=== PATIENT | female | born 1965 | race Caucasian/White ===

== ENCOUNTER 2022-05-01 14:43 | Outpatient (CLI) | payer MEDICAID, SELFPAY ==
--- NOTE | 2022-05-01 15:20 | CRLHL7_ITS ---
For Patients: As a result of the Century Cures Act, medical imaging exams and procedure reports are released immediately into your electronic medical record. You may view this report before your referring provider. If you have questions, please contact your health care provider. BILATERAL SCREENING MAMMOGRAM WITH COMPUTER-AIDED DETECTION TECHNIQUE: CC and MLO views were obtained. These mammographic images have been obtained using full-field digital technique. These mammographic images were interpreted with the benefit of computer-aided detection. COMPARISON FILM: 10/06/18, 11/01/14 FINDINGS: The breasts are almost entirely fatty IMPRESSION: There is no radiographic evidence for malignancy. ASSESSMENT: BI-RADS Category 1: Negative RECOMMENDATION: Routine screening mammogram in 1 year. A lay language report of this examination will be provided to the patient. Alex Sellers M.D. Diagnostic Radiologist [email or web address] KAYLEE/Dictated by: Alex Sellers MD @ 05/02/2022 8:17:00 AM (Electronically Signed)
== END 2022-05-01 14:44 | disposition home or self-care (01) ==
LOC: MAMMO 14:44
PROVIDERS: PCP Physician Assistant Medical; Visit Provider Physician Assistant Medical
DX: Z12.31 Encounter for screening mammogram for malignant neoplasm of breast (principal)
CPT/HCPCS: 77063; 77067

== ENCOUNTER 2022-05-08 15:14 | Outpatient (CLI) | payer MEDICAID, SELFPAY ==
[2022-05-08 21:54] LABS: Chloride* 102 mmol/L (96-114); Potassium* 4.3 mmol/L (3.6-5.1); Sodium* 138 mmol/L (135-149)
[2022-05-08 21:57] LABS: Carbon Dioxide* 27 mmol/L (20-32); Creatinine* 0.7 mg/dL (0.5-1.5); Estimated Glomerular Filt Rate 101 ml/min
[2022-05-08 21:58] LABS: Blood Urea Nitrogen* 18 mg/dL (7-30); Calcium* 9.1 mg/dL (8.4-10.6); Glucose* 89 mg/dL (60-115)
== END 2022-05-08 15:15 | disposition home or self-care (01) ==
PROVIDERS: PCP Physician Assistant Medical; Visit Provider Physician Assistant Medical
DX: Z01.818 Encounter for other preprocedural examination (principal)
CPT/HCPCS: 80048

== ENCOUNTER 2022-05-11 08:23 | Outpatient (CLI) | payer MEDICAID, SELFPAY ==
--- NOTE | 2022-05-11 09:40 | W.ANESCHARGE ---
Anesthesia Charges Start Date/Time Anesthesia Start Date: 05/11/22 Anesthesia Start Time: 08:05 Stop Date/Time Anesthesia Stop Date: 05/11/22 Anesthesia Stop Time: 09:33 Summary Emergency: No
== END 2022-05-11 08:24 | disposition home or self-care (01) ==
LOC: OP CLINIC 08:26
PROVIDERS: PCP Physician Assistant Medical; Visit Provider Internal Medicine
DX: K21.9 Gastro-esophageal reflux disease without esophagitis (principal)
CPT/HCPCS: 00731; 43239; 88305; 88342; J2704

== ENCOUNTER 2023-07-04 08:30 | Outpatient (REF) | payer OTHER, SELFPAY | END 2023-07-04 08:31 | disposition home or self-care (01) | LOC: NFLDREF 08:30 | PROVIDERS: PCP Physician Assistant Medical; Referring Provider Physician Assistant Medical; Visit Provider Physician Assistant Medical | DX: E78.5 Hyperlipidemia, unspecified (principal); Z13.29 Encounter for screening for other suspected endocrine disorder; Z13.9 Encounter for screening, unspecified | CPT/HCPCS: 80053; 80061; 84439; 84443 ==

== ENCOUNTER 2024-06-23 14:38 | Outpatient (CLI) | payer OTHER, SELFPAY | END 2024-06-23 14:39 | disposition home or self-care (01) | PROVIDERS: PCP Physician Assistant Medical; Visit Provider Physician Assistant Medical | DX: Z00.00 Encounter for general adult medical examination without abnormal findings (principal); E03.8 Other specified hypothyroidism; E78.5 Hyperlipidemia, unspecified; F41.9 Anxiety disorder, unspecified; Z13.29 Encounter for screening for other suspected endocrine disorder; Z13.9 Encounter for screening, unspecified | CPT/HCPCS: 80053; 80061; 84443 ==

== ENCOUNTER 2024-12-29 16:35 | Outpatient (CLI) | payer BC, SELFPAY ==
--- NOTE | 2024-12-29 16:40 | CRLHL7_ITS ---
For Patients: As a result of the Century Cures Act, medical imaging exams and procedure reports are released immediately into your electronic medical record. You may view this report before your referring provider. If you have questions, please contact your health care provider. INDICATION: 3D Screening Mammogram, asymptomatic 59F COMPARISON: 05/01/22, 10/06/18, 11/01/14 TECHNIQUE: CC and MLO views were obtained. These mammographic images have been obtained using full-field digital technique. These mammographic images were interpreted with the benefit of computer aided detection and tomosynthesis. BREAST COMPOSITION: The breasts are almost entirely fatty. FINDINGS: No suspicious findings. ASSESSMENT: BI-RADS 1 Negative RECOMMENDATION: Annual screening mammogram. A lay language report of this examination will be provided to the patient. Dictated by: Alex Sellers MD @ 12/31/2024 10:17:34 (Electronically Signed)
== END 2024-12-29 16:36 | disposition home or self-care (01) ==
LOC: MAMMO 16:35
PROVIDERS: PCP Physician Assistant Medical; Visit Provider Physician Assistant Medical
DX: Z12.31 Encounter for screening mammogram for malignant neoplasm of breast (principal)
CPT/HCPCS: 77063; 77067

== ENCOUNTER 2024-12-29 16:37 | Outpatient (CLI) | payer BC, SELFPAY ==
[2025-01-01 07:06] LABS: HPV Source Cervix; HPV, High Risk by TMA Not Detected
== END 2024-12-29 16:38 | disposition home or self-care (01) ==
PROVIDERS: PCP Physician Assistant Medical; Visit Provider Registered Nurse
DX: Z12.4 Encounter for screening for malignant neoplasm of cervix (principal); Z11.51 Encounter for screening for human papillomavirus (HPV)
CPT/HCPCS: 77063; 77067; 87624; 87625; 88141; 88142

== ENCOUNTER 2025-01-04 06:32 | Outpatient (CLI) | payer BC, SELFPAY ==
--- NOTE | 2025-01-04 07:52 | P.ANES_ITS ---
Anesthesia Charges Start Date/Time Anesthesia Start Date: 01/04/25 Anesthesia Start Time: 07:20 Stop Date/Time Anesthesia Stop Date: 01/04/25 Anesthesia Stop Time: 07:47 Coding CPT Codes CPT Codes: ORIANA LWR INTST SCR COLSC - 01210 ([id number]) P2 - PATIENT W/MILD SYST DISEASE, QX - TAR CHASER SVC W/ MD MED DIRECTION, QK - MISDRAW HAND 2-4 CNCRNT ANES PROC
--- NOTE | 2025-01-04 07:52 | W.ANESCHARGE ---
Anesthesia Charges Start Date/Time Anesthesia Start Date: 01/04/25 Anesthesia Start Time: 07:20 Stop Date/Time Anesthesia Stop Date: 01/04/25 Anesthesia Stop Time: 07:47 Coding CPT Codes CPT Codes: ORIANA LWR INTST SCR COLSC - 19354 ([id number]) P2 - PATIENT W/MILD SYST DISEASE, QX - MESH CUTTER SVC W/ MD MED DIRECTION, QK - STEVEDORING SUPERVISOR 2-4 CNCRNT ANES PROC
--- NOTE | 2025-01-04 08:03 | P.ANES_ITS ---
Anesthesia Charges Start Date/Time Anesthesia Start Date: 01/04/25 Anesthesia Start Time: 07:20 Stop Date/Time Anesthesia Stop Date: 01/04/25 Anesthesia Stop Time: 07:47 Coding CPT Codes CPT Codes: ANES LWR INTST SCR COLSC - 38719 ([id number]) P2 - PATIENT W/MILD SYST DISEASE, QK - WING SCORER 2-4 CNCRNT ANES PROC, QX - GAS STATION ATTENDANT SVC W/ MD MED DIRECTION
--- NOTE | 2025-01-04 08:03 | W.ANESCHARGE ---
Anesthesia Charges Start Date/Time Anesthesia Start Date: 01/04/25 Anesthesia Start Time: 07:20 Stop Date/Time Anesthesia Stop Date: 01/04/25 Anesthesia Stop Time: 07:47 Coding CPT Codes CPT Codes: ANES LWR INTST SCR COLSC - 09247 ([id number]) P2 - PATIENT W/MILD SYST DISEASE, QK - MANAGER BUSINESS BANKING 2-4 CNCRNT ANES PROC, QX - THERAPEUTIC RECREATION SPECIALIST SVC W/ MD MED DIRECTION
== END 2025-01-04 06:33 | disposition home or self-care (01) ==
LOC: OP CLINIC 06:33
PROVIDERS: PCP Physician Assistant Medical; Visit Provider Internal Medicine
DX: Z12.11 Encounter for screening for malignant neoplasm of colon (principal); K57.30 Diverticulosis of large intestine without perforation or abscess without bleeding
CPT/HCPCS: 00812; 45378; J2704

== ENCOUNTER 2025-04-20 04:25 | Inpatient (IN) | payer BC, SELFPAY ==
[2025-04-20] VITALS (31 sets, daily range): BP systolic 105–136; BP diastolic 64–101; PULSE 70–92; RESP 14–20; TEMP 36.5–37.4; O2SAT 88–98; BMI 30.9; BMI 31.1
--- OUTSIDE RECORDS SUMMARY | 2025-04-20 04:27 | XMS_ITS | Clinical Summary ---
Author Organization [facility] Address [address] [place] [id number] Care Team Providers Care Completions Manager Name Role Phone Paris Gilliam JOSE M Primary Care Provider [phone] Allergies No known active allergies Medications venlafaxine (EFFEXOR XR) 75 mg cp24 Extended-Release capsule Take by mouth once daily with a meal. 0 01/13/2015 Active Active Problems No known active problems Family History Medical History Relation Name Comments Other Daughter lazy eye Other Maternal Grandmother macular degeneration Relation Name Status Comments Daughter Maternal Grandmother Social History Tobacco Use Types Packs/Day Years Used Date Smoking Tobacco: Never Alcohol Use Standard Drinks/Week Comments Not Asked 0 (1 standard drink = 0.6 oz pur e alcohol) Comments No Sex and Gender Information Value Date Recorded Sex Assigned at Not on file Legal Sex Female 6:36 PM ANALYTIC PROGRAMMER Gender Identity Not on file Sexual Orientation Not on file Obstetrics History Last Filed Vital Signs Vital Sign Reading Time Taken Comments Blood Pressure 122/87 04/09/2016 2:42 PM CDT Pulse 86 04/09/2016 2:42 PM CDT Temperature - - Respiratory Rate - - Oxygen Saturation - - Inhaled Oxygen Concentration - - Weight - - Height - - Body Mass Index - - Plan of Treatment Health Maintenance Due Date Last Done Comments Tetanus booster 1975 Depression screening for age 12+ 1976 HIV for age 15-65 1979 BMI (ht and wt on same day) for age 18+ 1982 Hepatitis C screening for age 18-79 1982 Colonoscopy through age 75 2009 Lipids for age 45-75 2009 Mammogram for age 45-75 2009 Pneumococcal series for age 50+ (1 of 1 - PCV) 2014 Zoster (shingles) series for age 50+ (1 of 2) 2014 Pap test for age 21-65 10/15/2017 10/15/2014, 2014 COVID-19 vaccine series (5 - 2023- season) 2024 09/06/2022, 09/09/2021, 01/04/2021, Additional history exists Influenza Vaccine (#1) 2025 RSV vaccine for adults or (1 - 1-dose 75+ series) 2039 Hepatitis B series for 19+ Aged Out N o longer eligible based on patient's age to complete this topic Procedures Procedure Name Priority Date/Time Associated Diagnosis Comments GENERAL I FARMWORKER THIN PREP PAP SCREEN IMAGED Routine 10/15/2014 9:30 AM ANALYTIC PROGRAMMER from Last 3 Months or Most Recently Relevant to Health Maintenance Results * GENERAL I FARMWORKER THIN PREP PAP SCREEN IMAGED (10/15/2014 9:30 AM ANALYTIC PROGRAMMER) GENERAL I FARMWORKER CYTOLOGY See Anatomic Pathology case 10/20/2014 7:04 PM ANALYTIC PROGRAMMER [facility] Specimen (specimen) (Cervical/Vagina l) Client Collect / Unknown 10/15/2014 9:30 AM ANALYTIC PROGRAMMER 10/15/2014 6:36 PM ANALYTIC PROGRAMMER December Marylin Gilliam PA-C PATHOLOGY/CYTOLOGY Final R esult [facility] [address] [place] [address], [place] from Last 3 Months or Most Recently Relevant to Health Maintenance Care Teams Completions Manager Relationship Specialty Start Date End Date Paris Gilliam PA-C PCP - General Physician Char Filter Tank Tender 01/05/15
--- NOTE | 2025-04-20 04:52 | CRLHL7_ITS ---
For Patients: As a result of the Century Cures Act, medical imaging exams and procedure reports are released immediately into your electronic medical record. You may view this report before your referring provider. If you have questions, please contact your health care provider. INDICATION: Right upper quadrant pain. COMPARISON: 10/06/2020 TECHNIQUE: CT of the abdomen and pelvis with intravenous contrast. Multiplanar axial, coronal, and sagittal reformats were reconstructed. Contrast: 89 mL Isovue 370. FINDINGS: Lung bases: Normal. Liver: Focal fatty infiltration at the falciform ligament. Gallbladder and bile ducts: The gallbladder is contracted around several gallstones. No pericholecystic edema. No bile duct dilation. The extrahepatic bile duct measures 4 millimeters. Pancreas: Normal. Spleen: Normal. Adrenal glands: Normal. Kidneys: Normal parenchyma. No cyst or solid mass. Small amount of contrast is being excreted into the collecting system. No calculi. No urinary tract dilation. Urinary bladder: Normal. Pelvis: No cyst or mass. Vessels: Minimal atherosclerosis. Bowel: Appendicitis. The appendiceal tip is dilated up to 1.3 cm. The appendix is fluid filled. There is periappendiceal inflammatory stranding. No phlegmon or abscess. There is a 1 centimeter calcified appendicolith at the base of the appendix. The appendix is in a retrocecal location with the tip just under the inferior aspect of the right lobe of the liver. Inflammation does not extend up into Youssef`s pouch. No other inflamed bowel. Diverticulosis without diverticulitis. Moderate stool burden. Lymph nodes: No adenopathy. Peritoneum: No ascites. Abdominal wall: Small umbilical hernia and diastasis recti. Bones: No fractures. No focal worrisome bone lesions. IMPRESSION: Acute appendicitis. There is a 1 centimeter calcified appendicolith at the base of the appendix. No perforation or abscess. Please note that all CT scans at this facility use dose modulation, iterative reconstruction, and/or weight-based dosing when appropriate to reduce radiation dose to as low as reasonably achievable. Dictated by Aggie Norwood MD @ 04/20/2025 5:32:17 AM (Electronically Signed)
--- NOTE | 2025-04-20 04:54 | ED.GENADULT ---
HPI - General Adult General Chief complaint: Abdominal Pain Stated complaint: RUQ pain Time Seen by Provider: 04/20/25 04:41 Source: patient Mode of arrival: ambulatory Limitations: no limitations History of Present Illness HPI narrative: 5-year-old female presents to the emergency department with her for evaluation of right upper quadrant abdominal pain for the last 11 hours, unable to sleep. No injury or trauma. No nausea or vomiting. Last bowel movement was the same time as the start of the abdominal pain, she thought that they could be connected. The bowel movement was normal. No blood, no diarrhea, no severe cramping. Pain is constant. Worse with a deep breath. Achy in nature baseline sharp with deep breath. No prior history of similar symptoms. No prior history of gallbladder disease. No prior abdominal surgeries. Does have a history of GERD, takes omeprazole for this. Had an endoscopy quite a few years ago, showed only a little bit of GERD, has been on omeprazole since but no history of H pylori or other major conditions within the stomach. Had a screening colonoscopy within the last year, normal per her report. Pain does not radiate. No hematuria or dysuria. She is not anticoagulated. No chest pain or shortness of breath. No fever. Did not try any medications or other interventions prior to coming to the ED. Past medical history notable for anxiety disorder and OCD, uses venlafaxine for the last 20 years, only 75 mg daily with no recent adjustments. Only other medication is omeprazole. Nonsmoker, no significant alcohol intake. No pertinent travel. ROS is notable for the abdominal symptoms only, otherwise denies times 12 systems. Related Data Previous Rx's ?Medication ?Instructions ?Recorded omeprazole 20 mg capsule,delayed 20 mg PO QDAY #90 caps 06/23/24 release venlafaxine 75 mg capsule,extended 75 mg PO DAILY #90 caps 06/23/24 release 24 hr peg 3350-electrolytes 236 240 ml PO ONCE #4,000 mL 12/29/24 gram-22.74 gram-6.74 gram-5.86 gram solution (Golytely) Allergies Allergy/AdvReac Type Severity Reaction Status Date / Time No Known Allergies Allergy Verified 04/20/25 04:33 [facility] Medical History Left wrist sprain ?S63.502A - Unspecified sprain of left wrist, initial encounter (ICD-10) Strain of gluteus medius of right lower extremity ?S76.011A - Strain of muscle, fascia and tendon of right hip, initial encounter (ICD-10) Mass of left finger ?R22.32 - Localized swelling, mass and lump, left upper limb (ICD-10) Swelling of left ring finger ?M79.89 - Other specified soft tissue disorders (ICD-10) Surgical History History of esophagogastroduodenoscopy (EGD) ?Z98.890 - Other specified postprocedural states (ICD-10) History of excision of mass (02/28/18) ?Z98.890 - Other specified postprocedural states (ICD-10) Status post tubal ligation (04/04/09) ?Z98.51 - Tubal ligation status (ICD-10) History of colonoscopy ?Z98.890 - Other specified postprocedural states (ICD-10) Family History Aunt Breast cancer Sister Depression High blood pressure Father High blood pressure Heart disease High cholesterol Mother High cholesterol Other Diabetes Social History Narrative: does not drink alcohol does not use illicit drugs nonsmoker Smoking Status: Never smoker How often do you have a drink containing alcohol: never AUDIT-C Alcohol total score: 0 Non-prescribed substance use: denies use Exam Const: Vital Signs, click to edit/add: Vital Signs - 24 hr 04/20/25 04:31 04/20/25 06:50 Temperature 98.1 F 98.2 F Pulse Rate [Pulse Oximeter] 92 86 Respiratory Rate 16 16 Blood Pressure [Ri ght Upper Arm] 136/101 H 135/93 H Pulse Oximetry 98 94 Oxygen Delivery Me thod Room Air Room Air Documenting provider has reviewed patient's vital signs: yes Common normals: no apparent distress and alert General appearance: cooperative and well kempt HENMT: Common normals: normocephalic, moist oral mucous membranes and oropharynx normal Head and scalp: normocephalic Face and sinus: normal facial exam Eye: Common normals: conjunctivae normal General eye: normal appearance of both eyes Conjunctiva: conjunctiva(e) normal Neck & C-Spine: Common normals: full ROM and no lymphadenopathy General: normal visual inspection Resp: Common normals: normal respiratory effort, no use of accessory muscles and clear to auscultation bilaterally Effort & inspection: able to speak in complete sentences Auscultation: clear to auscultation bilaterally Cardio: Common normals: regular rate, regular rhythm, S1 normal heart sound, S2 normal heart sound and no murmurs Rate: regular rate Rhythm: regular rhythm Heart sounds: S1 normal and S2 normal GI: Common normals: Normal to inspection, nondistended, normoactive bowel sounds present, soft to palpation, no hepatosplenomegaly and no masses Palpation: soft and no hepatosplenomegaly Other: Tender to the right upper/mid abdomen. It is not quite the Davalos's sign, a little lower and more lateral but certainly quite focal. no other areas. No rebound tenderness or guarding. : Common normals: no CVA tenderness Bladder/kidney exam: no CVA tenderness Back & Pelvis: Common normals: no CVA tenderness and thoracic and lumbar spine normal to inspection Extremity: Common normals: normal to inspection, normal capillary refill and no pedal edema Neuro: Common normals: moves all extremities Sensorium/orientation: alert Speech: speech normal Psych: Common normals: thought process normal Appearance: well kempt Attitude: engaged Activity/motor behavior: appropriate eye contact Thought process: normal thought process Attention/concentration: attention grossly intact Insight: insight good Judgement: judgment good Skin: Common normals: no rashes or lesions noted General skin exam: no rashes or lesions noted Course Course ED Course: 5-year-old female with right upper to mid abdominal pain for 11 hours, exam showing diaphragmatic irritation with deep breath, overall quite suspicious for acute cholecystitis. Differential diagnosis also including gallstones, biliary colic, less likely pathology involving the appendix, stomach, colon, small intestine, pancreas, ureter, musculoskeletal system, skin or pulmonary system. Will perform an EKG to ensure that there is no sign of cardiac disease but will mainly pursue intra-abdominal workup with CT, typical intra-abdominal labs. Will give Dilaudid and Zofran for symptom management. I do not have ultrasound available just quite yet this morning but will within a couple of hours. Patient counseled that CT may not be the ideal test to shows gallbladder pathology and we may need to repeat imaging with an ultrasound if CT is inconclusive but it will rule out any other etiology for the pain. She verbalizes understanding. Will await findings. Reevaluation(s) Time of Reevaluation #1: 06:04 Reevaluation #1: Counseled patient on findings. CT suspicious for acute appendicitis. Gallbladder does have some gallstones but there really is no sign of inflammation, fluid or other abnormality around the gallbladder that would suggest that this is the etiology of her symptoms. Remainder of labs look reassuring. There is no significant leukocytosis, no elevated lactate. Her vitals remained stable and are not showing any signs of sepsis. I spoke with the surgeon on-call, Dr. Bucio. She is recommending appendectomy. We are pencil in this in for noon. Will start Zosyn. Patient has p.r.n. Dilaudid ordered, she will remain NPO. She has received 1 L bolus of LR, will start LR maintenance fluid as well. EKG is also reviewed with no signs of underlying cardiac disease. Patient is medically cleared for surgery at this time with no additional perioperative recommendations. Vital Signs Vital signs: Initial Vital Signs Temperature 98.1 F 04/20/25 04:31 Temperature Source Temporal Artery Scan 04/20/25 04:31 Pulse Rate 92 04/20/25 04:31 Respiratory Rate 16 04/20/25 04:31 Blood Pressure 136/101 H 04/20/25 04:31 Blood Pressure Mean 112 H 04/20/25 04:31 Blood Pressure Position Sitting 04/20/25 04:31 Pulse Oximetry 98 04/20/25 04:31 Oxygen Delivery Method Room Air 04/20/25 04:31 Vital Signs Temperature 98.1 F 04/20/25 04:31 Pulse Rate 92 04/20/25 04:31 Respiratory Rate 16 04/20/25 04:31 Blood Pressure 136/101 H 04/20/25 04:31 Pulse Oximetry 98 04/20/25 04:31 Oxygen Delivery Method Room Air 04/20/25 04:31 Temperature 98.2 F 04/20/25 06:50 Pulse Rate 86 04/20/25 06:50 Respiratory Rate 16 04/20/25 06:50 Blood Pressure 135/93 H 04/20/25 06:50 Pulse Oximetry 94 04/20/25 06:50 Oxygen Delivery Method Room Air 04/20/25 06:50 Medications Administered Medications: Generic Name Dose Route Start Last Admin Trade Name Freq PRN Reason Stop Dose Admin Piperacillin Sod/Tazobactam 100 mls @ 200 mls/hr 04/20/25 06:00 04/20/25 06:57 Sod 3.375 gm/ Sodium Chloride IVPB Infused Q6H ERMIAS Infusion Lactated Ringer's 500 mls @ 125 mls/hr 04/20/25 06:01 04/20/25 06:57 Lactated Ringers 500 Ml IV 125 mls/hr .Q4H ERMIAS Administration Discontinued Medications Generic Name Dose Route Start Last Admin Trade Name Freq PRN Reason Stop Dose Admin Hydromorphone HCl 0.25 mg 04/20/25 04:52 04/20/25 05:00 Hydromorphone 0.5 Mg/0.5 Ml Inj IVP 04/20/25 04:53 0.25 mg ONCE ONE Administration Lactated Ringer's 1,000 mls @ 1,000 mls/hr 04/20/25 05:04 04/20/25 06:30 Lactated Ringers 1000 Ml IV 04/20/25 06:03 Infused .Q1H ONE Infusion Ondansetron HCl 4 mg 04/20/25 04:52 04/20/25 04:59 Ondansetron 2 Mg/Ml Inj IVP 04/20/25 04:53 4 mg ONCE ONE Administration Medical Decision Making Lab Data Lab results reviewed: Yes I reviewed the patient's lab results Lab results narrative: White count is normal but absolute neutrophil count is mildly elevated. Creatinine and electrolytes look great. CRP mildly elevated, liver enzymes look good. No pancreatitis Labs: Lab Results 04/20/25 04/20/25 04/20/25 Range/Units 04:52 05:00 06:15 WBC 10.01 (4.50-11.00) K/uL RBC 4.29 (4.00-5.20) m/uL Hgb 12.8 (12.0-16.0) gm/dL Hct 38.5 (33.0-51.0) % MCV 90 (80-100) fL MCH 30 (26-34) pg MCHC 33 (32-36) gm/dL RDW Coeff of [place] 13.5 (11.5-15.5) % Plt Count 245 (140-440) K/uL Neut % (Auto) 77.1 H (42.0-72.0) % Lymph % (Auto) 14.3 L (20-44) % [place] % (Auto) 7.1 (0.0-11.0) % Eos % (Auto) 1.2 (0.0-7.0) % Baso % (Auto) 0.2 (0.0-3.0) % Neut # (Auto) 7.70 H (1.7-7.0) K/uL Lymph # (Auto) 1.40 (0.90-2.90) K/uL [place] # (Auto) 0.70 (0.00-0.90) K/UL Eos # (Auto) 0.12 (0.00-0.50) K/uL Baso # (Auto) 0.02 (0.00-0.30) K/uL Abs Immat Gran (auto) 0.01 (0.00-0.30) K/uL Imm/Tot Granulo (auto) 0.1 % Sodium 135 (135-149) mmol/L Potassium 4.2 (3.6-5.1) mmol/L Chloride 104 (96-114) mmol/L Carbon Dioxide 24 (20-32) mmol/L Anion Gap 7 (7-15) mEq/L BUN 25 (7-30) mg/dL Creatinine 0.7 (0.5-1.5) mg/dL Estimated Creat Clear 73.80 Estimated GFR 99 ml/min Glucose 109 (60-115) mg/dL Lactate 0.8 (0.5-1.9) mmol/L Calcium 9.2 (8.4-10.6) mg/dL Total Bilirubin 0.9 (0.1-1.5) mg/dL AST 32 (12-35) U/L ALT 39 H (4-35) U/L Alkaline Phosphatase 97 (40-150) U/L C-Reactive Protein 1.7 H (0.5-1.0) mg/dL Total Protein 7.4 (6.0-8.3) g/dL Albumin 4.4 (3.3-5.0) g/dL Lipase 126 (23-300) U/L Urine Color Yellow (Yellow) Urine Appearance Slightly Cloudy A (Clear) Urine pH 6.5 (5.0-8.5) Ur Specific [place] 1.015 (1.000-1.030) Urine Protein Negative (Negative) Urine Glucose (UA) Negative (Negative) Urine Ketones Negative (Negative) Urine Blood Negative (Negative) Urine Nitrite Positive A (Negative) Urine Bilirubin Negative (Negative) Urine Urobilinogen 0.2 (0.2-1.0) Ur Leukocyte Esterase 1+ A (Negative) Urine RBC 0-2 (0-2) Urine WBC 2-5 (0-5) Ur Squamous Epith Cells Few (None-Few) Urine Bacteria Many A (None) POC Creatinine 0.8 (0.6-1.3) mg/dl Imaging Data CT scan - abdomen: Attestation: I have reviewed the pertinent imaging results. My impression: Appendicitis in high riding appendix. No signs of perforation or abscess. There is certainly some gallstones as well but no signs of gallbladder inflammation or fluid. Radiologist's impression: IMPRESSION: Acute appendicitis. There is a 1 centimeter calcified appendicolith at the base of the appendix. No perforation or abscess. Please note that all CT scans at this facility use dose modulation, iterative reconstruction, and/or weight-based dosing when appropriate to reduce radiation dose to as low as reasonably achievable. Dictated by Aggie Norwood MD @ 04/20/2025 5:32:17 AM ECG Data Attestation: I personally reviewed and interpreted this ECG as follows: Prior ECG tracings: not available for review Interpretation: Sinus rhythm with a rate of 86. Normal intervals and axis. No significant ST or T-wave abnormalities. T-waves are little bit enlarged, especially in lead to suggestive of some mild left atrial enlargement but no other signs of any structural heart disease. Discharge Plan Discharge Clinical Impression: Acute appendicitis Patient Disposition: XFER to OR Follow Up/Referrals: Magdi Brooks PA-C [Primary Care Provider, Family Practice]
[2025-04-20] MEDS: ONDANSETRON 2 MG/ML inj 4 MG IVP (04:59)
[2025-04-20 05:06] LABS: Lactate* 0.8 mmol/L (0.5-1.9)
[2025-04-20 05:09] LABS: Hematocrit* 38.5 % (33.0-51.0); Hemoglobin* 12.8 gm/dL (12.0-16.0); Immature Granulocytes Abs Auto 0.01 K/uL (0.00-0.30); Immature Granulocytes Pct Auto 0.1 %; Mean Corpuscular HGB Conc 33 gm/dL (32-36); Mean Corpuscular Hemoglobin 30 pg (26-34); Mean Corpuscular Volume 90 fL (80-100); RDW Coefficient of Variation % 13.5 % (11.5-15.5); Red Blood Count* 4.29 m/uL (4.00-5.20); White Blood Count* 10.01 K/uL (4.50-11.00)
[2025-04-20 05:11] LABS: Creatinine, Point-of-Care* 0.8 mg/dl (0.6-1.3)
[2025-04-20 05:13] LABS: Lymphocytes Absolute Auto 1.40 K/uL (0.90-2.90); Slide Review Reflex No
[2025-04-20 05:23] LABS: Albumin* 4.4 g/dL (3.3-5.0); Chloride* 104 mmol/L (96-114); Potassium* 4.2 mmol/L (3.6-5.1); Sodium* 135 mmol/L (135-149)
[2025-04-20 05:25] LABS: Alanine Aminotransferase* 39 U/L (4-35); Aspartate Amino Transferase* 32 U/L (12-35); Blood Urea Nitrogen* 25 mg/dL (7-30); Creatinine* 0.7 mg/dL (0.5-1.5); Est. Creatinine Clearance* 73.80; Estimated Glomerular Filt Rate 99 ml/min
[2025-04-20 05:26] LABS: Alkaline Phosphatase* 97 U/L (40-150); Anion Gap 7 mEq/L (7-15); Bilirubin Total* 0.9 mg/dL (0.1-1.5); Calcium* 9.2 mg/dL (8.4-10.6); Carbon Dioxide* 24 mmol/L (20-32); Glucose* 109 mg/dL (60-115); Total Protein* 7.4 g/dL (6.0-8.3)
[2025-04-20] MEDS: LACTATED RINGERS 1000 ML 1,000 ML IV (05:26)
[2025-04-20] MEDS: PIPERACILLIN/TAZOBACTAM 3.375 GM in 0.9 % SODIUM CHLORIDE Mini-bag 100 ML IVPB ×2 (06:24→18:06)
[2025-04-20 06:28] LABS: Appearance Urine Slightly Cloudy (Clear)
[2025-04-20] MEDS: LACTATED RINGERS 500 ML 500 ML 125 ML IV (06:57)
[2025-04-20] MEDS: ACETAMINOPHEN 500 MG TABLET 1000 MG PO (10:50)
--- NOTE | 2025-04-20 11:57 | P.GSHP_ITS ---
History of Present Illness History of Present Illness Date Seen: 04/20/25 Chief complaint: RUQ pain Narrative: Portia Martin is a 59 year old female who presented to the emergency department with 12 hours right-sided abdominal pain. The pain started yesterday around 430. She has never had pain like this before. She has had a decrease in appetite. Denies any nausea or vomiting. Has had a regular bowel movement. No fevers. Her abdominal surgical history is positive for a tubal ligation. She is otherwise healthy. Review of Systems Status of ROS: Reports: 10 or more systems reviewed and unremarkable except as noted in History and below [facility] Medical History Left wrist sprain ?S63.502A - Unspecified sprain of left wrist, initial encounter (ICD-10) Strain of gluteus medius of right lower extremity ?S76.011A - Strain of muscle, fascia and tendon of right hip, initial encounter (ICD-10) Mass of left finger ?R22.32 - Localized swelling, mass and lump, left upper limb (ICD-10) Swelling of left ring finger ?M79.89 - Other specified soft tissue disorders (ICD-10) Surgical History History of esophagogastroduodenoscopy (EGD) ?Z98.890 - Other specified postprocedural states (ICD-10) History of excision of mass (02/28/18) ?Z98.890 - Other specified postprocedural states (ICD-10) Status post tubal ligation (04/04/09) ?Z98.51 - Tubal ligation status (ICD-10) History of colonoscopy ?Z98.890 - Other specified postprocedural states (ICD-10) Family History Aunt Breast cancer Sister Depression High blood pressure Father High blood pressure Heart disease High cholesterol Mother High cholesterol Other Diabetes Social History Narrative: does not drink alcohol does not use illicit drugs nonsmoker Smoking Status: Never smoker How often do you have a drink containing alcohol: never AUDIT-C Alcohol total score: 0 Non-prescribed substance use: denies use Caffeine: Yes Meds Home Medications and Allergies Home Medications ?Medication ?Instructions ?Recorded ?Confirmed ?Type omeprazole 20 mg capsule,delayed 20 mg PO QDAY #90 cap s 06/23/24 04/20/25 Rx release venlafaxine 75 mg capsule,extended 75 mg PO DAILY #90 caps 06/23/24 04/20/25 Rx release 24 hr peg 3350-electrolytes 236 240 ml PO ONCE #4,000 mL 05/1712/29/24 Rx gram-22.74 gram-6.74 gram-5.86 gram solution (Golytely) Allergies Allergy/AdvReac Type Severity Reaction Status Date / Time No Known Allergies Allergy Verified 04/20/25 04:33 Exam Narrative: Exam Narrative: General: Alert and oriented, no acute distress Respiratory: Clear breath sounds bilaterally, maintained on room air CV: Well perfused Abdomen: Soft, nondistended, tender to palpation right side with some guarding and rebound. Const: Vital Signs, click to edit/add: Vital Signs - 24 hr 04/20/25 04:31 04/20/25 06:50 04/20/25 07:42 Temperature 98.1 F 98.2 F Pulse Rate 84 Pulse Rate [Pulse Oximeter] 92 86 Respiratory Rate 16 16 Blood Pressure Blood Pressure [Ri ght Upper Arm] 136/101 H 135/93 H Pulse Oximetry 98 94 Oxygen Delivery Me thod Room Air Room Air Oxygen Flow Rate 04/20/25 07:45 04/20/25 08:00 04/20/25 08:00 Temperature Pulse Rate 83 86 Pulse Rate [Pulse Oximeter] Respiratory Rate Blood Pressure Blood Pressure [Ri ght Upper Arm] Pulse Oximetry 88 Oxygen Delivery Me thod Room Air Oxygen Flow Rate 04/20/25 08:01 04/20/25 08:01 04/20/25 08:15 Temperature Pulse Rate 85 81 Pulse Rate [Pulse Oximeter] Respiratory Rate 18 Blood Pressure 120/83 Blood Pressure [Ri ght Upper Arm] Pulse Oximetry 94 95 Oxygen Delivery Me thod Nasal Cannula Oxygen Flow Rate 2 04/20/25 08:30 04/20/25 08:31 04/20/25 08:45 Temperature Pulse Rate 83 80 82 Pulse Rate [Pulse Oximeter] Respiratory Rate Blood Pressure 120/83 Blood Pressure [Ri ght Upper Arm] Pulse Oximetry 97 96 96 Oxygen Delivery Me thod Oxygen Flow Rate 04/20/25 09:00 04/20/25 09:01 04/20/25 09:15 Temperature Pulse Rate 81 80 81 Pulse Rate [Pulse Oximeter] Respiratory Rate Blood Pressure 123/90 H Blood Pressure [Ri ght Upper Arm] Pulse Oximetry 97 96 97 Oxygen Delivery Me thod Oxygen Flow Rate 04/20/25 10:34 Temperature Pulse Rate 80 Pulse Rate [Pulse Oximeter] Respiratory Rate 16 Blood Pressure 122/86 Blood Pressure [Ri ght Upper Arm] Pulse Oximetry 96 Oxygen Delivery Me thod Room Air Oxygen Flow Rate Results Results Labs: No leukocytosis, left shift present. Abdomen CT scan report/results: report reviewed and image reviewed Progress Note:A&P Assessment and plan (1) Acute appendicitis: Status: Acute Assessment and Plan: The patient presented with a history, exam and imaging findings consistent with acute appendicitis. I discussed the treatment options with the patient including non-surgical and surgical options. I recommended laparoscopic appendectomy. The risks of surgery were reviewed with the patient including the risks of bleeding, post-operative wound or intra-abdominal infection, injury to abdominal structures and possible conversion to an open operation. We also discussed anesthetic complications including CT, stroke, respiratory failure and blood clots. The patient voiced an understanding of our conversation, had the opportunity to ask questions, agreed to accept the risks of surgery and asked that we proceed with surgery. -OR for laparoscopic appendectomy -Zosyn to be given preoperatively -NPO, IV fluids
[2025-04-20] MEDS: PIPERACILLIN/TAZOBACTAM 3.375 GM INJ IVPB (12:05)
[2025-04-20] MEDS: BUPIVACAINE 0.25% 30 ML 20 ML INJECTION (13:01)
--- NOTE | 2025-04-20 13:12 | P.GSOP_ITS ---
Operative Note Date of procedure: 04/20/25 Pre-op diagnosis: Acute appendicitis Post-op diagnosis: Same, perforated Type of Procedure: Laparoscopic appendectomy Indications: Patient is a 59-year-old female who presented to the emergency department with clinical symptoms and workup consistent with acute appendicitis. Risks and benefits of operative intervention were discussed at length with the patient. Risks included but was not limited to: Bleeding, infection, risk of damage to surrounding structures, possible need for additional procedures, possible need to convert to an open operation and postoperative complications such as pneumonia, pulmonary emboli or [place]. All questions and concerns were addressed with the patient agreeing to proceed. Procedure Description: After discussing the risks and benefits of the procedure, the patient signed informed consent.? The operative site was marked and the patient was brought to the operating room and placed on the operating table in supine position.? Care was taken to pad the patient's pressure points.?? The patient was then intubated by anesthesia.?? The operative site was then prepped and draped in the usual sterile fashion.? A time-out was then performed. Entrance to the abdomen was obtained via a 5 mm optical trocar in the left upper quadrant. The abdomen was insufflated and briefly surveyed for any signs of injury. There were none. A 12 mm port was placed at the umbilicus as well as a 5 mm port in the left lower quadrant under direct vision. The patient was then placed in Trendelenburg position with the right side up. The small bowel was gently moved out of the way. The cecum was redundant and soft. The terminal i leum and anti mesenteric fat pad was identified. The tinea of the cecum was followed to the base of the appendix. The appendix was then grasped and retracted caudad. The body of the appendix wrapped posteriorly to the cecum and was encased in inflammatory fat. Blunt dissection and cautery was used to remove the surrounding rind. The tip of the appendix was enlarged and necrotic. During manipulation a small tear occurred in the body of the appendix near the tip, with a small amount of stool spillage. This was controlled with suction. A mesenteric window was created at the base of the appendix. A 30 mm Endo-CHRISTIANO purple load stapler was then used to transect the appendix at its base. The staple line was inspected and appeared hemostatic with healthy tissue. A 45 mm vascular load stapler was then used to take the mesoappendix close to the body of the appendix. An additional 30 mm staple load was used to transect some inflammatory rind. The staple lines were inspected for bleeding, which was excellent. The appendix was then removed from the abdomen using an Endo-Catch bag. The specimen was sent to pathology. Some local irrigation was used in the right lower quadrant. All fluid above the liver and in the pelvis was removed with suction. All ports were removed under direct visualization. The 12 mm port site fascia was closed with 0 Vicryl via a [id number]. The skin was then closed with absorbable subcuticular suture. Sterile dressings were then applied. Instrument sponge and needle counts were correct at the end of the case. The patient was then woken and transported to the PACU in stable condition. Findings: Inflamed appendix, tear in the body of the appendix with a small amount of stool contamination. Anesthesia: GETA Surgeon: Yvette Bucio MD Estimated blood loss (mL): 10 Specimen: Appendix Condition: stable Disposition: PACU
--- NOTE | 2025-04-20 13:25 | P.ANES_ITS ---
Anesthesia Charges Start Date/Time Anesthesia Start Date: 04/20/25 Anesthesia Start Time: 11:55 Stop Date/Time Anesthesia Stop Date: 04/20/25 Anesthesia Stop Time: 13:21 Coding CPT Codes CPT Codes: ANESTH SURG LOWER ABDOMEN - 55249 ([id number]) P2 - PATIENT W/MILD SYST DISEASE, QZ - PATIENT CASE COORDINATOR SVC W/O QUALITY IMPROVEMENT SPECIALIST BY
--- NOTE | 2025-04-20 13:25 | W.ANESCHARGE ---
Anesthesia Charges Start Date/Time Anesthesia Start Date: 04/20/25 Anesthesia Start Time: 11:55 Stop Date/Time Anesthesia Stop Date: 04/20/25 Anesthesia Stop Time: 13:21 Coding CPT Codes CPT Codes: ANESTH SURG LOWER ABDOMEN - 20758 ([id number]) P2 - PATIENT W/MILD SYST DISEASE, QZ - CONCRETE PANEL INSTALLER SVC W/O SAMPLE SHOE INSPECTOR AND REWORKER BY
--- NOTE | 2025-04-20 15:49 | PC.NURSE ---
End of Shift Note: Patient arrived to the unit from PACU around 1400. No complaints of nausea or pain upon arrival. Did receive a clear liquid tray. Have a call out to Dr. Bucio to see if she can take her home medication and also to see if she wants her to have IV fluids running and also IS. Have not received a call back from Dr. Bucio yet report given to Edgar RN's to follow up.
[2025-04-20] MEDS: HYDROCODONE-ACETAMIN 5-325 MG 1 TAB PO (20:13)
[2025-04-20] MEDS: VENLAFAXINE ER 75 MG CAPSULE PO (20:14)
[2025-04-20] MEDS: OMEPRAZOLE 20 MG CAPSULE DR PO (20:15)
[2025-04-20] MEDS: SODIUM CHLORIDE 0.9 % (FLUSH) 10 ML SYRINGE 5 ML IVF (22:17)
--- NOTE | 2025-04-20 23:56 | PC.NURSE ---
End of shift note Patient has been very pleasant and cooperative throughout shift. Incision steri strips intact. Scant blood discharge on umbilical area. Pain has been well controlled throughout shift. Patient tolerated full diet advance well. No reports of nausea. Clear lung sounds. Hypo active abdominal sounds. Patient has gel manicure on finger nails and toes, oximetry has been taken on right nare. Patient moves well independently, ambulating frequently.
[2025-04-21] VITALS (9 sets, daily range): BP systolic 107–127; BP diastolic 71–84; PULSE 74–89; RESP 16–20; TEMP 36.4–37.8; O2SAT 90–94
[2025-04-21] MEDS: PIPERACILLIN/TAZOBACTAM 3.375 GM in 0.9 % SODIUM CHLORIDE Mini-bag 100 ML IVPB ×4 (00:25→18:04)
[2025-04-21 06:41] LABS: Hematocrit* 33.3 % (33.0-51.0); Hemoglobin* 11.1 gm/dL (12.0-16.0); Immature Granulocytes Abs Auto 0.01 K/uL (0.00-0.30); Immature Granulocytes Pct Auto 0.1 %; Mean Corpuscular HGB Conc 33 gm/dL (32-36); Mean Corpuscular Hemoglobin 30 pg (26-34); Mean Corpuscular Volume 91 fL (80-100); RDW Coefficient of Variation % 13.6 % (11.5-15.5); Red Blood Count* 3.68 m/uL (4.00-5.20); White Blood Count* 10.06 K/uL (4.50-11.00)
[2025-04-21 06:45] LABS: Chloride* 104 mmol/L (96-114); Potassium* 3.9 mmol/L (3.6-5.1); Sodium* 135 mmol/L (135-149)
[2025-04-21 06:48] LABS: Anion Gap 4 mEq/L (7-15); Blood Urea Nitrogen* 12 mg/dL (7-30); Calcium* 8.9 mg/dL (8.4-10.6); Carbon Dioxide* 27 mmol/L (20-32); Creatinine* 0.7 mg/dL (0.5-1.5); Est. Creatinine Clearance* 70.70; Estimated Glomerular Filt Rate 99 ml/min; Glucose* 103 mg/dL (60-115)
[2025-04-21 06:50] LABS: Lymphocytes Absolute Auto 1.30 K/uL (0.90-2.90); Slide Review Reflex No
[2025-04-21] MEDS: ACETAMINOPHEN 500 MG TABLET 1000 MG PO ×2 (08:13→18:04)
--- NOTE | 2025-04-21 08:42 | P.GSPN_ITS ---
Subjective Subjective Date Seen: 04/21/25 Interval history: Low-grade fever this morning (100). Overall patient feels much better. She still has some right-sided abdominal pain, but significant improvement compared to when she came in. She has been walking without difficulty. Tolerating a regular diet. No concerns. Exam Narrative: Exam Narrative: Abdomen: Soft, some tenderness with palpation on the right side, no guarding or rebound. Incisions with Steri-Strips in place clean/dry/intact Const: Vital Signs, click to edit/add: Vital Signs - 24 hr 04/20/25 08:45 04/20/25 09:00 04/20/25 09:01 Temperature Pulse Rate 82 81 80 Pulse Rate [Apical ] Pulse Rate [Left P ulse Oximeter] Pulse Rate [Right Pulse Oximeter] Respiratory Rate Blood Pressure 123/90 H Blood Pressure [Le ft Arm] Pulse Oximetry 96 97 96 Oxygen Delivery Me thod Oxygen Flow Rate 04/20/25 09:15 04/20/25 10:34 04/20/25 13:16 Temperature 98.3 F Pulse Rate 81 80 75 Pulse Rate [Apical ] Pulse Rate [Left P ulse Oximeter] Pulse Rate [Right Pulse Oximeter] Respiratory Rate 16 16 Blood Pressure 122/86 127/70 Blood Pressure [Le ft Arm] Pulse Oximetry 97 96 96 Oxygen Delivery Me thod Room Air Nasal Cannula Oxygen Flow Rate 6 04/20/25 13:21 04/20/25 13:25 04/20/25 13:30 Temperature Pulse Rate 70 75 73 Pulse Rate [Apical ] Pulse Rate [Left P ulse Oximeter] Pulse Rate [Right Pulse Oximeter] Respiratory Rate 16 16 14 Blood Pressure 109/64 116/73 116/77 Blood Pressure [Le ft Arm] Pulse Oximetry 94 92 92 Oxygen Delivery Me thod Nasal Cannula Nasal Cannula Nasal Cannula Oxygen Flow Rate 4 6 6 04/20/25 13:35 04/20/25 13:36 04/20/25 13:45 Temperature Pulse Rate 72 76 82 Pulse Rate [Apical ] Pulse Rate [Left P ulse Oximeter] Pulse Rate [Right Pulse Oximeter] Respiratory Rate 16 18 16 Blood Pressure 113/75 114/72 120/71 Blood Pressure [Le ft Arm] Pulse Oximetry 92 92 94 Oxygen Delivery Me thod Nasal Cannula Nasal Cannula Nasal Cannula Oxygen Flow Rate 4 4 4 04/20/25 13:57 04/20/25 14:00 04/20/25 14:15 Temperature 99.3 F 98.9 F 98.9 F Pulse Rate Pulse Rate [Apical ] Pulse Rate [Left P ulse Oximeter] 85 84 84 Pulse Rate [Right Pulse Oximeter] Respiratory Rate 18 18 18 Blood Pressure Blood Pressure [Le ft Arm] 119/81 117/79 105/79 Pulse Oximetry 92 93 94 Oxygen Delivery Me thod Nasal Cannula Nasal Cannula Nasal Cannula Oxygen Flow Rate 2 2 2 04/20/25 14:30 04/20/25 15:00 04/20/25 15:00 Temperature 98.9 F 98.9 F Pulse Rate Pulse Rate [Apical ] Pulse Rate [Left P ulse Oximeter] 81 79 Pulse Rate [Right Pulse Oximeter] 87 Respiratory Rate 18 18 16 Blood Pressure Blood Pressure [Le ft Arm] 120/82 117/79 Pulse Oximetry 92 93 Oxygen Delivery Me thod Nasal Cannula Nasal Cannula Oxygen Flow Rate 2 2 04/20/25 15:00 04/20/25 15:30 04/20/25 16:30 Temperature 97.8 F 97.7 F Pulse Rate Pulse Rate [Apical ] Pulse Rate [Left P ulse Oximeter] 87 85 Pulse Rate [Right Pulse Oximeter] 85 Respiratory Rate 16 16 18 Blood Pressure Blood Pressure [Le ft Arm] 107/77 109/79 Pulse Oximetry 96 96 93 Oxygen Delivery Me thod Nasal Cannula Nasal Cannula Nasal Cannula Oxygen Flow Rate 2 2 1 04/20/25 19:30 04/20/25 20:30 04/20/25 23:00 Temperature 98.3 F 99.3 F Pulse Rate Pulse Rate [Apical ] 84 Pulse Rate [Left P ulse Oximeter] Pulse Rate [Right Pulse Oximeter] 85 Respiratory Rate 20 18 Blood Pressure Blood Pressure [Le ft Arm] 126/82 Pulse Oximetry 94 98 Oxygen Delivery Me thod Room Air Room Air Oxygen Flow Rate 04/21/25 00:27 04/21/25 04:00 04/21/25 07:00 Temperature 99.9 F H 98.2 F 100.0 F H Pulse Rate Pulse Rate [Apical ] 89 84 Pulse Rate [Left P ulse Oximeter] Pulse Rate [Right Pulse Oximeter] 77 Respiratory Rate 16 16 20 Blood Pressure Blood Pressure [Le ft Arm] 112/71 117/80 107/77 Pulse Oximetry 91 91 92 Oxygen Delivery Me thod Room Air Room Air Room Air Oxygen Flow Rate 04/21/25 07:00 Temperature Pulse Rate Pulse Rate [Apical ] Pulse Rate [Left P ulse Oximeter] Pulse Rate [Right Pulse Oximeter] Respiratory Rate Blood Pressure Blood Pressure [Le ft Arm] Pulse Oximetry 92 Oxygen Delivery Me thod Room Air Oxygen Flow Rate Labs/Imaging Labs Labs: No leukocytosis, left shift Progress Note:A&P Assessment and plan (1) Acute appendicitis: Status: Acute Assessment and Plan: Patient is postop day 1 laparoscopic appendectomy. Small amount of intra- abdominal stool spillage during case, with evidence of necrosis to the tip of the appendix. Low-grade fever documented this morning. Patient with no leukocytosis, but left shift. Given the evidence of perforation I discussed with patient my recommendations to stay for continued IV antibiotics. Ideally, would like patient to be 24 hours without fever and no documented leukocytosis prior to discharge. - Regular diet - IV and p.o. pain meds as needed - DC IV fluids - Encourage ambulation - SCDs for DVT prophylaxis - Continue IV Zosyn - Trend fever curve and WBC
[2025-04-21] MEDS: SODIUM CHLORIDE 0.9 % (FLUSH) 10 ML SYRINGE 5 ML IVF ×2 (12:32→20:53)
--- NOTE | 2025-04-21 15:06 | PC.NURSE ---
End of Shift Note: Patient has done ok today. Did start out the shift with a temp received tylenol for pain and temp and temp has come down and has remained down and has not taken any more tylenol. Has been up and ambulating and also using her IS. Will continue to monitor until next shift arrives.
--- NOTE | 2025-04-21 19:45 | PC.NURSE ---
Nursing Care Hours: [id number] Pt this shift calm and cooperative, alert and oriented. Pain treated with PO meds. Pt took shower. VSS. Bandages CDI. Tolerating regular diet.
[2025-04-21] MEDS: OMEPRAZOLE 20 MG CAPSULE DR PO (20:53)
[2025-04-21] MEDS: VENLAFAXINE ER 75 MG CAPSULE PO (20:53)
[2025-04-22] MEDS: SODIUM CHLORIDE 0.9 % (FLUSH) 10 ML SYRINGE 5 ML IVF (00:03)
[2025-04-22] MEDS: PIPERACILLIN/TAZOBACTAM 3.375 GM in 0.9 % SODIUM CHLORIDE Mini-bag 100 ML IVPB ×2 (00:03→05:42)
[2025-04-22 03:00] VITALS: BP 158/96; PULSE 89; RESP 18; TEMP 37; O2SAT 91
[2025-04-22] MEDS: ACETAMINOPHEN 500 MG TABLET 1000 MG PO (03:07)
[2025-04-22 06:43] LABS: Hematocrit* 33.9 % (33.0-51.0); Hemoglobin* 11.2 gm/dL (12.0-16.0); Immature Granulocytes Abs Auto 0.02 K/uL (0.00-0.30); Immature Granulocytes Pct Auto 0.2 %; Mean Corpuscular HGB Conc 33 gm/dL (32-36); Mean Corpuscular Hemoglobin 30 pg (26-34); Mean Corpuscular Volume 90 fL (80-100); RDW Coefficient of Variation % 13.7 % (11.5-15.5); Red Blood Count* 3.75 m/uL (4.00-5.20); White Blood Count* 8.80 K/uL (4.50-11.00)
--- NOTE | 2025-04-22 06:46 | PC.NURSE ---
End of shift report [id number]: VSS. Afebrile. Pt rates pain from a 2-5/10, prn pain meds offered and given with relief. Pt states she is passing gas. Bowel sounds active upon auscultation. Pt noted to walk halls this shift. Pt denies nausea, tolerating regular diet. Pt is ind in room, call light within reach.?
[2025-04-22 06:55] LABS: Lymphocytes Absolute Auto 1.50 K/uL (0.90-2.90); Slide Review Reflex No
[2025-04-22 07:00] VITALS: BP 144/85; PULSE 85; RESP 16; TEMP 36.3; O2SAT 92
--- NOTE | 2025-04-22 09:57 | PM.DS1 ---
DS: Providers Provider Date Seen: 04/22/25 Date of admission: 04/21/25 11:10 Primary care physician: Magdi Brooks PA-C Admitting Clinician: Yvette Bucio MD Attending Physician on discharge: Yvette Bucio MD DS: Summary Hospital Course Hospital Course: Patient was admitted from the emergency department with acute appendicitis. She was taken for laparoscopic appendectomy. A small amount of stool spillage occurred intraoperatively. Continued IV antibiotics, Zosyn. Postop she had low-grade fevers on postop day 1, which improved. At the time of discharge she was 24 hours without fever and had no evidence of leukocytosis. Discharged with oral antibiotics to complete a 7 day course. At the time of discharge patient was tolerating a regular diet, ambulating independently and voiding without difficulty. Will plan to follow up with the patient in clinic Time Spent with Patient Time attestation: Total time spent providing and/or coordinating discharge services: Exam Narrative: Exam Narrative: General: Alert and oriented, nontoxic Respiratory: Equal breath rise bilaterally, maintained on room CV: Well perfused Abdomen: Soft, appropriately tender over incisions. Steri-Strips in place clean/dry/intact. Minimal right-sided tenderness with deep palpation. Const: Vital Signs, click to edit/add: Vital Signs - 24 hr 04/21/25 11:00 04/21/25 15:00 04/21/25 15:00 Temperature 97.8 F Pulse Rate [Apical ] 74 Pulse Rate [Left P ulse Oximeter] 85 Pulse Rate [Right Pulse Oximeter] Respiratory Rate 20 18 18 Blood Pressure [Le ft Arm] 117/79 Pulse Oximetry 94 91 Oxygen Delivery Me thod Room Air Room Air Oxygen Flow Rate 04/21/25 15:00 04/21/25 19:00 04/21/25 21:51 Temperature 98.5 F 98.4 F Pulse Rate [Apical ] Pulse Rate [Left P ulse Oximeter] Pulse Rate [Right Pulse Oximeter] 77 81 81 Respiratory Rate 18 16 16 Blood Pressure [Le ft Arm] 110/80 127/84 Pulse Oximetry 91 94 Oxygen Delivery Me thod Room Air Room Air Oxygen Flow Rate 04/21/25 23:00 04/21/25 23:00 04/22/25 03:00 Temperature 98.4 F 98.6 F Pulse Rate [Apical ] Pulse Rate [Left P ulse Oximeter] Pulse Rate [Right Pulse Oximeter] 86 89 Respiratory Rate 16 16 18 Blood Pressure [Le ft Arm] 114/82 158/96 H Pulse Oximetry 90 90 91 Oxygen Delivery Me thod Room Air Room Air Room Air Oxygen Flow Rate 04/22/25 07:00 04/22/25 07:00 04/22/25 07:00 Temperature 97.4 F L Pulse Rate [Apical ] Pulse Rate [Left P ulse Oximeter] Pulse Rate [Right Pulse Oximeter] 85 85 Respiratory Rate 16 16 16 Blood Pressure [Le ft Arm] 144/85 H Pulse Oximetry 92 92 Oxygen Delivery Me thod Room Air Room Air Oxygen Flow Rate 1 DS: Data Data Completed and Pending Labs on day of discharge: Labs from last 24 hours 04/22/25 06:13 WBC 8.80 RBC 3.75 L Hgb 11.2 L Hct 33.9 MCV 90 MCH 30 MCHC 33 RDW Coeff of [place] 13.7 Plt Count 235 Neut % (Auto) 73.4 H Lymph % (Auto) 17.4 L [place] % (Auto) 6.8 Eos % (Auto) 1.9 Baso % (Auto) 0.3 Neut # (Auto) 6.50 Lymph # (Auto) 1.50 [place] # (Auto) 0.60 Eos # (Auto) 0.17 Baso # (Auto) 0.03 Abs Immat Gran (auto) 0.02 Imm/Tot Granulo (auto) 0.2 Discharge Plan Discharge Disposition: Home, Self-Care Date of Admission: 04/21/25 11:10 Attending Provider on Discharge: Yvette Bucio Primary Care Provider: Magdi Brooks Condition: Improved Anticipated Discharge Date/Time: 04/22/25 07:04 Discharge Medications: New hydrocodone-acetaminophen 5-325 mg tablet 1 tab PO Q6H PRN (Reason: pain) Qty: 10 0RF amoxicillin-pot clavulanate 875-125 mg tablet 1 tab PO BID Qty: 10 0RF senna 8.6 mg capsule 8.6 mg PO DAILY PRN (Reason: constipation) Qty: 90 0RF Continued venlafaxine 75 mg capsule,extended release 24hr 75 mg PO DAILY Qty: 90 3RF omeprazole 20 mg capsule,delayed release(DR/EC) 20 mg PO QDAY Qty: 90 3RF peg 3350-electrolytes [Golytely] 236-22.74-6.74 -5.86 gram recon soln 240 ml PO ONCE Qty: 4000 0RF Rx Instructions: 4pm day prior to procedure. Drink 8oz glass every 15 minutes until 1/2 of solution is gone. 6 hours prior to procedure drink 8 oz glass every 15 minutes until remaining solution gone. Discharge Orders: Discharge Order (Routine); Ordered 04/22/25 Ordered By: Yvette Bucio Patient Education: Hydrocodone/Acetaminophen (By mouth), Amoxicillin/Clavulanate Potassium (By mouth) (Augmentin, Augmentin..., Senna (By mouth), Post-Operative Instructions: Appendectomy Additional Instructions: You were prescribed a narcotic pain medication. In addition you may supplement with Tylenol and/or ibuprofen. Be sure to not exceed greater than 4 g of Tylenol in a 24 hour period. While on narcotic pain medicine please take stool softeners. A prescription of stool softeners has been sent to the pharmacy. Stop if having greater than 2 stools per day. You have Steri-Strips dressings in place, allow these to fall off on their own. Okay to shower. Do not soak in a bath or swim for 2 weeks. Follow-up with Dr. Bucio in 2-3 weeks. Please call if you are experiencing severe pain, nausea, vomiting, difficulty urinating, fever or not had a bowel movement in 4 days after surgery. Activity Level: No strenuous activity Activity Detail: Activity as tolerated. Avoid strenuous activity. No lifting greater than 20 lb for 2 weeks. Discharge Diet: Regular Follow Up Appointments: Yvette Bucio MD [Staff Physician, General Surgery] - 05/06/25 1:30 pm Referral Note: [facility] for hospital follow-up. Magdi Brooks PA-C [Primary Care Provider, Family Practice] Forms: Outcome Referrals Info Instructions
--- NOTE | 2025-04-22 10:13 | PC.NURSE ---
[id number]: Pt. is AOX4. Afebrile. Pleasant & cooperative in cares. IND in rm and to BR. Pt. education done on activity restrictions, meds, S & S of infection. Pt. three incisional steri strips CDI w/ no signs of redness or swelling. Pt. does not report pain. Pt. belongings reviewed & signed. Pt. home meds included in d/c and returned to pt. Pt. wheeled out by RN to spouse to return home by personal vehicle.
== END 2025-04-22 09:55 | disposition home or self-care (01) | DRG 225 ==
LOC: ED 07:21 → SS 11:11 → MEDSURG 15:04 → SS 04-21 11:26 → MEDSURG 04-21 11:26
PROVIDERS: Admitting Provider Surgery; Emergency Provider Family Medicine; PCP Physician Assistant Medical; Visit Provider Surgery
PROC: 0DTJ4ZZ Resection of Appendix, Percutaneous Endoscopic Approach (ICD-10-PCS; CPT 44970; principal; 2025-04-20 12:00)
DX: K35.32 Acute appendicitis with perforation, localized peritonitis, and gangrene, without abscess (principal); K80.20 Calculus of gallbladder without cholecystitis without obstruction; K21.9 Gastro-esophageal reflux disease without esophagitis; F41.9 Anxiety disorder, unspecified; F42.9 Obsessive-compulsive disorder, unspecified
CPT/HCPCS: 00840; 36415; 74177; 80048; 80053; 81001; 81003; 82565; 83605; 83690; 85025; 86140; 87086; 88304; 93005; 99284; 99285; A9270; J0330; J0665; J1100; J1171; J1885; J2405; J2543; J2704; J2710; J3010; J3490; J7050; J7120; Q9967

== ENCOUNTER 2025-07-15 12:02 | Outpatient (CLI) | payer OTHER, BC, SELFPAY | END 2025-07-15 12:03 | disposition home or self-care (01) | PROVIDERS: PCP Physician Assistant Medical; Visit Provider Physician Assistant Medical | DX: E03.8 Other specified hypothyroidism (principal); E78.2 Mixed hyperlipidemia; Z13.9 Encounter for screening, unspecified | CPT/HCPCS: 80053; 80061; 84443 ==